=== PATIENT | female | born 1940 ===

== ENCOUNTER 2018-11-30 15:57 | Outpatient (REF) | payer MEDICARE, OTHER, SELFPAY ==
[2018-11-30 19:29] LABS: HCT 41.9 % (36.0-46.0); HGB 13.7 g/dL (12.0-15.5); Mean Corp. HGB Concentration 32.7 g/dL (32.0-36.0); Mean Corpuscular Hemoglobin 28.5 pg (27.0-33.0); Mean Corpuscular Volume 87.3 fL (80-95); Mean Platelet Volume 10.4 fL (8.0-11.0); Platelet Count 289 x1000/uL (130-400); RBC Distribution Width 13.4 % (11.7-14.6); White Blood Cell Count 9.69 k/cumm (4.4-10.8)
[2018-11-30 20:12] LABS: Anion Gap 10.4 mmol/L (3-11); BUN 33 mg/dL (7-18); CO2 27.6 mmol/L (21.0-32.0); CREATININE 1.32 mg/dL (0.55-1.02); Calcium 9.8 mg/dL (8.5-10.1); Chloride 101 mmol/L (98-107); Estimated GFR 39.13 (mL/min/1.73m2); Glucose 119 mg/dL (70-100); Potassium 3.9 mmol/L (3.5-5.1); Sodium 139 mmol/L (136-145)
[2018-11-30 20:35] LABS: ESR 31 MM/HR (0-30)
== END 2018-11-30 16:17 ==
LOC: NCHCN 15:57
PROVIDERS: PCP Internal Medicine; Visit Provider Internal Medicine
DX: I10 Essential (primary) hypertension (principal); R51 Headache
CPT/HCPCS: 80048; 85027; 85652

== ENCOUNTER 2019-07-23 16:36 | Outpatient (REF) | payer MEDICARE, OTHER, SELFPAY ==
[2019-07-23 19:37] LABS: HGB 13.6 g/dL (12.0-15.5); Mean Corp. HGB Concentration 32.4 g/dL (32.0-36.0); Mean Corpuscular Hemoglobin 27.8 pg (27.0-33.0); Mean Corpuscular Volume 85.9 fL (80-95); Mean Platelet Volume 10.5 fL (8.0-11.0); Platelet Count 354 x1000/uL (130-400); RBC 4.89 m/cumm (4.00-5.20); RBC Distribution Width 13.2 % (11.7-14.6); White Blood Cell Count 8.89 k/cumm (4.4-10.8)
[2019-07-23 19:52] LABS: AST 31 U/L (15-37); Albumin 3.4 g/dL (3.4-5.0); Alkaline Phosphatase 106 U/L (46-116); Anion Gap 8.9 mmol/L (3-11); BUN 23 mg/dL (7-18); Bilirubin, Total 0.4 mg/dL (0.2-1.0); CO2 29.1 mmol/L (21.0-32.0); CREATININE 1.11 mg/dL (0.55-1.02); Calcium 9.4 mg/dL (8.5-10.1); Chloride 100 mmol/L (98-107); Estimated GFR 47.66 (mL/min/1.73m2); Glucose 133 mg/dL (70-100); Potassium 3.8 mmol/L (3.5-5.1); Sodium 138 mmol/L (136-145); Total Protein 7.2 g/dL (6.4-8.2)
[2019-07-23 20:02] LABS: INR 1.1 (0.9-1.1); PTT Activated 26.4 sec (21.0-31.4); Prothrombin Time 10.6 sec (9.3-11.0)
[2019-07-23 20:03] LABS: ALT 20 U/L (14-59)
[2019-07-23 20:11] LABS: Hemoglobin A1C 6.7 % (4.5-6.2)
== END 2019-07-23 16:56 ==
LOC: NCHCN 16:36
PROVIDERS: PCP Internal Medicine; Visit Provider Internal Medicine
DX: R91.8 Other nonspecific abnormal finding of lung field (principal); R63.4 Abnormal weight loss; E11.9 Type 2 diabetes mellitus without complications; D37.6 Neoplasm of uncertain behavior of liver, gallbladder and bile ducts
CPT/HCPCS: 80053; 85027; 83036; 85610; 85730